=== PATIENT | male | born 1995 | race Two or more races ===

== ENCOUNTER 2021-08-07 01:19 | Emergency (ER) | payer OTHER ==
[~2021-08-07] VITALS: Ht 170.2 cm; Wt 97.1 kg
[2021-08-07] MEDS ORDERED: KETO10TA2 PO (02:54)
== END 2021-08-07 03:04 ==
LOC: ER 01:19
DX: S00.83XA Contusion of other part of head, initial encounter (principal); X58.XXXA Exposure to other specified factors, initial encounter; Y93.89 Activity, other specified; Y92.832 Beach as the place of occurrence of the external cause; Y99.8 Other external cause status